=== PATIENT | female | born 1975 | race African-American/Black ===

== ENCOUNTER 2020-08-23 09:51 | Emergency (ER) | payer SELFPAY ==
[~2020-08-23] VITALS: Ht 162.6 cm; Wt 52.4 kg
--- NOTE | 2020-08-23 10:14 | PHYS DOC ---
Past History Past Medical History: Anemia, Hypothyroid, Other Additional Past Medical Histor: FAST HEART RATE Past Surgical History: Other Additional Past Surgical Histo: LEFT OVARY REMOVAL WITH ECTOPIC, HERNIA Alcohol Use: None General Adult EDM: Chief Complaint: ABDOMINAL PAIN HPI: HPI: 44 yo F PMH ectopic , anemia and hyperthyroidism with ablation on levothyroxine (x2yrs) presents to the ed with c/o abnormal menses with lower abdominal cramping and a sensation of "vaginal movement." Patient states she has had irregular menses ever since starting her levothyroxine 2 yrs ago, normal is VB x 2 days, [id number]. States she passed vaginal blood clots on Wednesday. Last menses lasted x2 days in April. Does report unprotected vaginal intercourse with a new male partner. Is oncerned for STIs due to increased vaginal discharge/odor. Has no primary care physician after moving here from [place] a year ago. P[employer] SPECIALIST in [place], Isaias Burns, has been refilling her levothyroxine (is not out of this medication). Is requesting family medicine, endocrine and PREFITTER referrals. Reports history 2 SAB, 1 EAB (s/p D&S) and 1 ectopic with failed methotrexate and L USO (complicated with small bowel perforation that required additional surgery). No h/o blood transfusions or fibroids. Reports no exertional dyspnea, syncope, dysuria, hematuria, flank pain, flulike symptoms, weight loss or night sweats. Review of Systems: Review of Systems: Constitutional: Denies fever or chills Eyes: Denies change in visual acuity HENT: Denies nasal congestion or sore throat Respiratory: Denies cough or shortness of breath Cardiovascular: Denies chest pain or edema GI: Denies nausea, vomiting, bloody stools or diarrhea : Denies dysuria or hematuria Musculoskeletal: Denies back pain or joint pain Integument: Denies rash or diaphoresis Neurologic: Denies headache, focal weakness or sensory changes Endocrine: Denies polyuria or polydipsia Lymphatic: Denies swollen glands Psychiatric: Denies depression or anxiety Allergies: Allergies: Allergies Coded Allergies Type Severity Reaction Last Updated Verified No Known Drug Allergies 08/23/20 No Physical Exam: PE: Constitutional: Well developed, well nourished, no acute distress, non-toxic appearance, small/petite HENT: Normocephalic, atraumatic, Eyes: EOMI, conjunctiva normal, no discharge. Neck: Normal range of motion, supple, Cardiovascular: S1/2 present, regular rhythm Lungs & Thorax: Speaking in full sentences, bilateral equal chest rise, no tachypnea or increased work of breathing Abdomen: soft, no tenderness, no guarding/rigidity/peritonitis Skin: Warm, dry, no erythema, no rash. [] Extremities: No tenderness, no cyanosis, no lower extremity edema Neurologic: Alert and oriented X 3, normal motor function, normal sensory function, no focal deficits noted. [] Psychologic: Affect normal, judgement normal, mood normal. [] Pelvic: Chaperoned by RN, external genitalia normal, no vaginal bleeding, normal nonmalodorous yellow/green elizabeth discharge, cervical os closed, no cervical er ythema, no CMT or adnexal tenderness, tolerated exam well Current Patient Data: Vital Signs: Vital Signs Date Time Temp Pulse Resp B/P (MAP) Pulse Ox O2 Delivery O2 Flow Rate FiO2 08/23/20 10:03 97.1 98 18 124/66 (85) 100 Room Air EKG: EKG: [] Radiology/Procedures: Radiology/Procedures: [] Heart Score: C/O Chest Pain: No Risk Factors: Risk Factors: DM, Current or recent (<one month) smoker, HTN, HLP, family history of CAD, obesity. Risk Scores: Score 0 - 3: 2.5% MACE over next 6 weeks - Discharge Home Score 4 - 6: 20.3% MACE over next 6 weeks - Admit for Clinical Observation Score 7 - 10: 72.7% MACE over next 6 weeks - Early Invasive Strategies Course & Med Decision Making: Course & Med Decision Making Pertinent Labs and Imaging studies reviewed. (See chart for details) Concern for bacterial vaginosis in the setting of urinary tract infection and unprotected intercourse, no PID on physical exam. Patient afebrile, well- appearing. Is treated empirically for chlamydia and gonorrhea. Will prescribe Macrobid and Flagyl for UTI bacterial vaginosis. I encouraged primary care or health department for blood-borne STI testing and treatment. Encouraged to abstain from sexual intercourse for 10 days after her and all sexual partners are treated for STIs. Will discharge home with strict ED return precautions were given for fever, flulike symptoms, dehydration, heavy vaginal bleeding or severe abdominal pelvic pain. Encouraged urgent outpatient follow-up with PMD and PREFITTER and endocrine. Life-threatening processes were considered but are low suspicion at this time, given history, physical exam and ED workup. Pt was educated on all prescription medications and adverse effects. All patient's questions were answered and pt was stable at time of discharge. Life/limb-threatening differential includes but is not limited to, ectopic , septic , sepsis/infection (endometritis, sti/pid, cystitis, pyelonephritis, Roger's gangrene or necrotizing fasciitis, abscess), ovarian torsion, ruptured hemorrhagic ovarian cyst, endometriosis, ureterolithiasis, thrombophlebitis, hemorrhage/DIC, organ prolapse, abdominal aortic aneurysm, mesenteric ischemia, neoplasm, bowel obstruction or surgical abdomen. I spoken with the patient and her caregivers. I explained the patient's condition, diagnoses and treatment plan based on the information available to me at this time. I have answered the patient and her caregiver's questions and addressed any concerns. The patient and her caregivers have a good understanding of patient's diagnosis, condition and treatment plan as can be expected at this point. Vital signs have been stable. Patient's condition is stable and appropriate for discharge from the emergency department. Patient will pursue further outpatient evaluation with primary care physician or other designated or consulting physician as outlined in the discharge instructions. The patient and/or caregivers are agreeable to this plan of care and follow-up instructions have been explained in detail. The patient and/or caregivers have received these instructions in written form and have expressed an understanding of the discharge instructions. The patient and/or caregivers are aware that any significant change of condition or worsening of symptoms should prompt immediate return to this or the closest emergency department or call to 1. Demetri Disclaimer: Demetri Disclaimer: This electronic medical record was generated, in whole or in part, using a voice recognition dictation system. Departure Departure: Impression: Primary Impression: UTI (urinary tract infection) Additional Impressions: Metrorrhagia Bacterial vaginosis Disposition: 01 DC HOME SELF CARE/HOMELESS Condition: STABLE Referrals: PCP,NO (PCP) Repat U/A in 10 days FOLLOW UP WITH FAMILY MEDICINE: Complete [facility], [facility] [address] [id number] [place] [address] Patient Instructions: Bacterial Vaginosis, Metrorrhagia, Urinary Tract Infection Additional Instructions: FOLLOW UP WITH OBGYN: [facility] PREFITTER [address] [place] [address] [facility] Endocrinology Appointments: Referrals are accepted through the Endocrine office. FAX: [phone] Office: [phone] Appointments: [phone] Option 1 [facility] Specialists - [place] [address] [facility] [address] [place] [address] EMERGENCY DEPARTMENT GENERAL DISCHARGE INSTRUCTIONS Thank you for coming to [facility] (ED) today and trusting us with you care. We trust that you had a positivie experience in our Emergency Department. If you wish to speak to the department management, you may call the director at [phone]. YOUR FOLLOW UP INSTRUCTIONS ARE FOLLOWS: 1. Do you have a private Doctor? If you do not have a private doctor, please ask for a resource list of physicians or clinics that may be able to assist you with follow up care. 2. The Emergency Physician has interpreted your x-rays. The X-Ray specialist will also review them. If there is a change in the findings, you will be notified in 48 hours when at all possible. 3. A lab test or culture has been done, your results will be reviewed and you will be notified if you need a change in treatment. ADDITIONAL INSTRUCTIONS AND INFORMATION: 1. Your care today has been supervised by a physician who is specially trained in emergency care. Many problems require more than one evaluation for a complete diagnosis and treatment. We recommend that you schedule your follow up appointment as recommended to ensure complete treatment of you illness or injury. If you are unable to obtain follow up care and continue to have a problem, or if your condition worsens, we recommend that you return to the ED. 2. We are not able to safely determine your condition over the phone nor are we able to give sound medical advice over the phone. For these safety reasons, if you call for medical advice we will ask you to come to the ED for further evaluation. 3. If you have any questions regarding these discharge instructions please call the ED at [phone]. SAFETY INFORMATION: In the interest of safety, wellness, and injury prevention; we encourage you to wear your sealbelt, if you smoke; quite smoking, and we encourage family to use a pr otective helmet for bicycling and other sporting events that present an increased risk for head injury. IF YOUR SYMPTOMS WORSEN OR NEW SYMPTOMS DEVELOP, OR YOU HAVE CONCERNS ABOUT YOUR CONDITION; OR IF YOUR CONDITION WORSENS WHILE YOU ARE WAITING FOR YOUR FOLLOW UP APPOINTMENT; EITHER CONTACT YOUR PRIMARY CARE DOCTOR, THE PHYSICIAN WHOSE NAME AND NUMBER YOU WERE GIVEN, OR RETURN TO THE ED IMMEDIATELY. Scripts Metronidazole (FLAGYL) 500 Mg Tablet 1 TAB PO BID for BV for 7 Days, #14 TAB Avoid alcohol with this medication, will cause nausea and vomiting Prov: JULIANA SPIVEY DO 08/23/20 Nitrofurantoin Monohyd/M-Cryst (MACROBID 100 MG CAPSULE) 100 Mg Capsule 1 CAP PO BID for uti for 7 Days, #14 CAP 0 Refills Prov: JULIANA SPIVEY DO 08/23/20 JULIANA SPIVEY DO Aug 23, 2020 10:14
[2020-08-23] MEDS ORDERED: cefTRIAXone IM 500 MG VIAL. IM ONE (10:30)
[2020-08-23 10:45] LABS: BACTERIA,URINE MANY /HPF (0-FEW); BILIRUBIN,URINE NEG (NEG); CLARITY,URINE CLOUDY; COLOR,URINE YELLOW; GLUCOSE,URINE NEG (NEG); NITRITE,URINE POS (NEG); SQUAMOUS EPITHELIAL CELL,UR FEW /LPF
[2020-08-23] MEDS ORDERED: METR500T PO (11:35)
[2020-08-23] MEDS ORDERED: NITR100C62 PO (11:35)
[2020-08-23 11:43] VITALS: BP 122/61
[2020-08-23] MEDS ORDERED: AZITHROMYCIN 250 MG TABLET. PO ONE (11:45)
[2020-08-26 16:21] LABS: CHLAMYDIA PROBE Positive (Negative)
== END 2020-08-23 11:45 | disposition home or self-care (01) ==
LOC: ER 09:51
DX: N39.0 Urinary tract infection, site not specified (principal); N76.0 Acute vaginitis; B96.89 Other specified bacterial agents as the cause of diseases classified elsewhere; N92.1 Excessive and frequent menstruation with irregular cycle; D64.9 Anemia, unspecified; E03.9 Hypothyroidism, unspecified; Z98.890 Other specified postprocedural states
CPT/HCPCS: 81001; 81025; 87086; 87491; 87591; 96372; 99284; J0696; Q0111; 87077; 87186

== ENCOUNTER 2020-08-26 20:28 | Emergency (ER) | payer SELFPAY ==
[~2020-08-26] VITALS: Ht 162.6 cm; Wt 51.4 kg
[~2020-08-26 20:28] MED LIST: METR500T PO; NITR100C62 PO
[2020-08-26 20:38] VITALS: BP 108/91
--- NOTE | 2020-08-26 20:50 | PHYS DOC ---
Past History Past Medical History: Anemia, Anxiety Additional Past Medical Histor: FAST HEART RATE Past Surgical History: Hysterectomy, Other Additional Past Surgical Histo: GI Alcohol Use: None General Adult EDM: Chief Complaint: HEAD INJURY/TRAUMA HPI: HPI: Patient is a 44-year-old female coming in via EMS for a head injury. Patient was walking in a store and hit her right forehead against a metal shelf. Says she stumbled backward but did not fall the ground. Patient states she feels a little bit dizzy and sleepy here. Vaccinations are up-to-date. States she otherwise been well. Denies any nausea, vomiting, vision changes. Review of Systems: Review of Systems: All other systems within normal limits except for as noted in the HPI Allergies: Allergies: Allergies Coded Allergies Type Severity Reaction Last Updated Verified No Known Drug Allergies 08/23/20 No Physical Exam: PE: Constitutional: Well developed, well nourished, no acute distress, non-toxic appearance. [] HENT: Normocephalic, right forehead hematoma, tenderness over right methodist, no orbital tenderness or deformity., bilateral external ears normal, nose normal. [] Eyes: PERRLA, conjunctiva normal, no discharge. [] Neck: No rigidity, supple, no stridor. [] Cardiovascular: Regular rate and rhythm, brisk cap refill [] Lungs & Thorax: Non labored symmetric respirations, no tachypnea or respiratory distress [] Abdomen: Soft, nondistended. Skin: Warm, dry, no erythema, no rash. Superficial less than 1 cm cut to right forehead overlying hematoma. [] Back: Unremarkable Extremities: No deformities, range of motion grossly intact, no lower extremity edema [] Neurologic: Alert and oriented X 3, no focal deficits noted. [] Psychologic: Affect normal, judgement normal, mood normal. [] Current Patient Data: Vital Signs: Vital Signs Date Time Temp Pulse Resp B/P (MAP) Pulse Ox O2 Delivery O2 Flow Rate FiO2 08/26/20 20:38 98.1 76 16 108/91 (97) 100 Room Air EKG: EKG: [] Radiology/Procedures: Radiology/Procedures: EXAM: CT HEAD WITHOUT CONTRAST. HISTORY: Head injury. TECHNIQUE: Computed tomography of the head was performed without intravenous contrast. One or more of the following individualized dose reduction techniques were utilized for this examination: 1. Automated exposure control. 2. Adjustment of the mA and/or kV according to patient size. 3. Use of iterative reconstruction technique. COMPARISON: None. FINDINGS: There is no intracranial hemorrhage. Bergeron-white differentiation is preserved. The ventricles are normal in size and position. The visualized paranasal sinuses appear clear. The orbits are unremarkable. The temporal bones are unremarkable. The calvarium reveals no suspicious lesions. IMPRESSION: 1. No acute intracranial findings.[] Heart Score: C/O Chest Pain: N/A Risk Factors: Risk Factors: DM, Current or recent (<one month) smoker, HTN, HLP, family history of CAD, obesity. Risk Scores: Score 0 - 3: 2.5% MACE over next 6 weeks - Discharge Home Score 4 - 6: 20.3% MACE over next 6 weeks - Admit for Clinical Observation Score 7 - 10: 72.7% MACE over next 6 weeks - Early Invasive Strategies Course & Med Decision Making: Course & Med Decision Making Pertinent Labs and Imaging studies reviewed. (See chart for details) [] Demetri Disclaimer: Demetri Disclaimer: This electronic medical record was generated, in whole or in part, using a voice recognition dictation system. Departure Departure: Impression: Primary Impression: Head injury Additional Impression: Traumatic hematoma of forehead Disposition: 01 DC HOME SELF CARE/HOMELESS Condition: STABLE Referrals: PCP,NO (PCP) Patient Instructions: Concussion and Brain Injury MARY ANN TORRES MD Aug 26, 2020 20:50
--- NOTE | 2020-08-26 21:13 | RAD ---
EXAM: CT HEAD WITHOUT CONTRAST. HISTORY: Head injury. TECHNIQUE: Computed tomography of the head was performed without intravenous contrast. One or more of the following individualized dose reduction techniques were utilized for this examination: 1. Automated exposure control. 2. Adjustment of the mA and/or kV according to patient size. 3. Use of iterative reconstruction technique. COMPARISON: None. FINDINGS: There is no intracranial hemorrhage. Bergeron-white differentiation is preserved. The ventricle s are normal in size and position. The visualized paranasal sinuses appear clear. The orbits are unremarkable. The temporal bones are un remarkable. The calvarium reveals no suspicious lesions. IMPRESSION: 1. No acute intracranial findings. Electronically signed by: Sumit Harding MD (08/26/2020 9:11 PM) [facility]
== END 2020-08-26 21:29 | disposition home or self-care (01) ==
LOC: ER 20:28
DX: S00.83XA Contusion of other part of head, initial encounter (principal); W22.8XXA Striking against or struck by other objects, initial encounter; Y93.01 Activity, walking, marching and hiking; Y92.89 Other specified places as the place of occurrence of the external cause; Y99.8 Other external cause status
CPT/HCPCS: 70450; 99284-25

== ENCOUNTER → 2020-12-20 | Day surgery (SDC) | payer BC ==
[~2020-12-20] MED LIST changes: +IPRATRPIUM/ALBUTEROL 0.5/2.5MG 3 ML NEBU. NEB PRN; +IV RINGERS SOLUTION,LACTATED 1,000 ML IV SCH; +LEVO75TA5 PO; +LIDOCAINE 2% PF 5 ML VIAL. ONE; +MIDAZOLAM HCL PF 2 MG/2 ML VIAL. IV ONE; +ONDANSETRON PF 4 MG/2 ML VIAL. IV PRN; +PANT40TA6 PO; +PROPOFOL 10,000 MCG/ML (20ML) VIAL IV ONE; +ZOLP10TA PO
[2020-12-20 11:06] LABS: BARBITURATES NEG (NEG); BENZODIAZEPINES NEG (NEG); CANNABINOIDS POS (NEG); COCAINE NEG (NEG); METHADONE NEG (NEG); OPIATES NEG (NEG); PHENCYCLIDINE NEG (NEG)
[2020-12-20 11:09] LABS: AMPHETAMINE/METHAMPHETAMINE NEG (NEG)
[2020-12-20 13:46] VITALS: BP 91/61
--- NOTE | 2020-12-24 14:32 | PATHOLOGY ---
[facility] Accession Number: [id number] . 01 Material submitted: . PART A: stomach - ANTRUM BIOPSY PART B: sigmoid colon - SIGMOID COLON HOT SNARE POLYPECTOMY PART C: sigmoid colon - COLITIS BIOPSY SIGMOID COLON . 01 Clinical history: . N/V ; ANEMIA ; EPIGASTRIC ; WEIGHT LOSS EGD/COLONOSCOPY . 02 Diagnosis: A. Gastric biopsies, antrum: - Chronic gastritis, mild. . B. Colonic mucosa, sigmoid colon polypectomy: - Tubular adenoma. . C. Colonic mucosa, sigmoid colon biopsies: - Focal recent hemorrhage within lamina propria. (JPM:fernando; 12/24/2020) [facility] 12/24/2020 0927 Local . 02 Comment: Sections of the gastric antral biopsy show congestion and mild chronic inflammation. A properly controlled immunoperoxidase stain for Helicobacter is negative for Helicobacter organisms. . Sections of the sigmoid colon polypectomy reveal a tubular adenoma showing no high grade dysplasia or evidence of malignancy. . Sections of the sigmoid colon biopsy reveal segments of colonic mucosa showing focal recent hemorrhage within the lamina propria. There is no evidence of an acute colitis or ischemic colitis. There is no evidence of a chronic destructive colitis, lymphocytic colitis, or collagenous colitis. (JPM:fernando; 12/24/2020) . Special stain performed: Immunoperoxidase stain for Helicobacter on A1 . 02 Electronically signed: . Nito Cook MD, Pathologist NPI- [id number] . 01 Gross description: . A. The specimen is submitted in formalin, labeled "Casi Mcmullen, antrum biopsy". Received are 3 segments of pale mortensen tissue ranging in size from 0.1 to 0.4 cm in maximum dimensions. The specimen is submitted in cassette A1. . B. The specimen is received in formalin, labeled "Casi Mcmullen, sigmoid colon polyp hot snare". Received is a single segment of dark mortensen tissue measuring 1.0 x 0.9 x 0.7 cm in maximum dimensions. The surgical margin is inked. The specimen is trisected and submitted entirely in cassette B1. . C. The specimen is submitted in formalin, labeled "Casi Mcmullen, colitis biopsy sigmoid colon". Received are 2 segments of pale mortensen tissue ranging in size from 0.4 to 0.5 cm in maximum dimensions. The specimen is submitted in cassette C1. ([facility]; 12/23/2020) NRI/NRI 12/23/2020 1736 Local . 02 Pathologist provided ICD-10: K29.50, D12.5 . 02 CPT . 745090, 220503, 748025, F90808 Specimen Comment: A courtesy copy of this report has been sent to [phone], [phone] Specimen Comment: [id number] Specimen Comment: Report sent to / DR SHARMA Performed at: 01 [facility] [address] [facility] [address], [place] [id number] MD Cornelio Tobar MD Phone: [phone] Performed at: 02 [facility] [address] [place], [place] [id number] MD Nito Cook MD Phone: [phone]
== END | disposition home or self-care (01) ==
LOC: SURG 10:25
PROVIDERS: ATTEND Internal Medicine Gastroenterology
DX: K62.5 Hemorrhage of anus and rectum (principal); D64.9 Anemia, unspecified; R63.4 Abnormal weight loss; R10.13 Epigastric pain; K44.9 Diaphragmatic hernia without obstruction or gangrene; K21.00 Gastro-esophageal reflux disease with esophagitis, without bleeding; D12.5 Benign neoplasm of sigmoid colon; K29.50 Unspecified chronic gastritis without bleeding; K63.89 Other specified diseases of intestine; K31.89 Other diseases of stomach and duodenum; F17.210 Nicotine dependence, cigarettes, uncomplicated; Z79.899 Other long term (current) drug therapy; Z98.890 Other specified postprocedural states; Z20.822 Contact with and (suspected) exposure to COVID-19
CPT/HCPCS: 36415; 43239; 45380; 45381; 45385; 80307; 87426; 88305; 88342; C9803; J2001; J2704; J7120; U0003

== ENCOUNTER 2021-02-06 21:10 | Emergency (ER) | payer BC ==
[~2021-02-06] VITALS: Ht 162.6 cm; Wt 49.0 kg
[2021-02-06 21:10] VITALS: BP 97/60
[~2021-02-06 21:10] MED LIST changes: -IPRATRPIUM/ALBUTEROL 0.5/2.5MG 3 ML NEBU. NEB PRN; -IV RINGERS SOLUTION,LACTATED 1,000 ML IV SCH; -LIDOCAINE 2% PF 5 ML VIAL. ONE; -MIDAZOLAM HCL PF 2 MG/2 ML VIAL. IV ONE; -ONDANSETRON PF 4 MG/2 ML VIAL. IV PRN; -PROPOFOL 10,000 MCG/ML (20ML) VIAL IV ONE
--- NOTE | 2021-02-06 21:41 | PHYS DOC ---
Past History Past Medical History: Anemia, Anxiety Additional Past Medical Histor: FAST HEART RATE (GUNNAR BRADY APRN) Past Surgical History: Hysterectomy, Other Additional Past Surgical Histo: GI (GUNNAR BRADY APRN) Alcohol Use: None (GUNNAR BRADY APRN) General Adult EDM: Chief Complaint: MULTIPLE COMPLAINTS HPI: HPI: Patient is a 45-year-old female who presents to the ER for multiple complaints. She states she she has a parasite because she will have "backing up of saliva into throat" with fluids but is able to tolerate food, GERD symptoms for several months, and she believes that she sees a parasite exam out of her left buttocks and then goes back in. She is also concerned because she has bladder pressure pain and thinks the parasite may be coming through her bladder. Patient reports that her symptoms started 3 months ago. Patient has been seen by Selvin Meza and Lucio for the symptoms. She has had EGD and colonoscopy. Patient is also concerned because she has scattered areas of bruising to her right thigh which she states becomes "activated" and will turn red and then go back to a bruise. (GUNNAR BRADY APRN) Review of Systems: Review of Systems: 14 body systems of the review of systems have been reviewed. See HPI for pertinent positive and negative responses, otherwise all other systems are negative, nonpertinent or noncontributory (GUNNAR BRADY APRN) Allergies: Allergies: Allergies Coded Allergies Type Severity Reaction Last Updated Verified No Known Drug Allergies 08/23/20 No (GUNNAR BRADY APRN) Physical Exam: PE: Constitutional: Well developed, well nourished, no acute distress, non-toxic appearance. [] HENT: Normocephalic, atraumatic, bilateral external ears normal, oropharynx moist, no oral exudates, nose normal. [] Eyes: PERRL, EOMI, conjunctiva normal, no discharge. [] Neck: Normal range of motion, no stridor Cardiovascular: Normal peripheral perfusion Lungs & Thorax: Normal work of breathing Abdomen: Soft, nondistended, no pulsatile masses Skin: Warm, dry, no erythema, no rash, no lesions noted to patient's buttocks, patient is noted to have a few small bruises to her lower extremities there is no surrounding redness and they appear to be healing well. [] Back: Normal range of motion Extremities: No tenderness, no cyanosis, no clubbing, ROM intact, no edema. [] Neurologic: Alert and oriented X 3, normal motor function, normal sensory funct ion, no focal deficits noted. [] Psychologic: Affect normal, judgement normal, mood normal. [] (GUNNAR BRADY APRN) EKG: EKG: [] (GUNNAR BRADY APRN) Radiology/Procedures: Radiology/Procedures: [] (GUNNAR BRADY APRN) Heart Score: C/O Chest Pain: No Risk Factors: Risk Factors: DM, Current or recent (<one month) smoker, HTN, HLP, family history of CAD, obesity. Risk Scores: Score 0 - 3: 2.5% MACE over next 6 weeks - Discharge Home Score 4 - 6: 20.3% MACE over next 6 weeks - Admit for Clinical Observation Score 7 - 10: 72.7% MACE over next 6 weeks - Early Invasive Strategies (GUNNAR BRADY APRN) Course & Med Decision Making: Course & Med Decision Making Pertinent Labs and Imaging studies reviewed. (See chart for details) [] Patient is a 45-year-old female being seen regarding ER for possible parasite she believes keeps entering and exiting through her left buttocks. There was no lesions to her buttocks. There are a few bruises noted to her lower extremities but they had no redness around them and appeared to be healing well. Patient reports that she has had some "saliva backing up into throat" with fluids but has been able to eat solids. Her vital signs are stable. Patient has been worked up for these symptoms by 3 different doctors. She has had an upper and lower GI scope performed. Work-up in the ER consisted of a urinalysis and test. Negative test and urinalysis was unremarkable. She was also asked to provide a stool sample for ova and parasite testing. Patient states that she cannot provide a stool sample at this time. Patient was treated for nausea with Zofran. Patient advised to follow-up with her primary care provider. I discussed with patient all findings and diagnostic testing as well as the need to follow-up with PCP for further evaluation and treatment or return to the ER if any new or worsening symptoms. Strict return precautions were also discussed at length. Patient voiced understanding and agreement with the plan. Patient is hemodynamically stable at the time of disposition. (GUNNAR BRADY APRN) Course & Med Decision Making Did not see or evaluate patient. Did not discuss patient with BURRER MACHINE. Agree with BURRER MACHINE's work-up and disposition per note. (YOLANDA QUEZADA MD) Dragon Disclaimer: Dragon Disclaimer: This electronic medical record was generated, in whole or in part, using a voice recognition dictation system. (GUNNAR BRADY APRN) Departure Departure: Impression: Primary Impression: Nausea Disposition: HOME / SELF CARE / HOMELESS Condition: GOOD Referrals: SANJUANA SHARMA MD (PCP) Patient Instructions: Nausea, Adult Additional Instructions: You were seen in the ER today for multiple complaints including thinking there was a parasite in your body. You were unable to provide a stool sample to test for parasite. If you are able to provide a stool sample your primary care provider can run the same testing. We tested your urine for infection and . You are not and your urinalysis was unremarkable. You were given Zofran for nausea in the ER as he stated that you spit up fluids. Your vital signs are stable and your physical exam was reassuring. You are being discharged home with a prescription for Zofran that you can take as needed for nausea. Increase your fluids. Stick to clear liquid diet over the next 24 hours which consisted Gatorade, Jell-O's, soup. Following the first 24 hours you can eat a bland diet, we suggest the brat diet which consists of bananas, rice, applesauce and toast. Upon physical exam, you did not have any tick bites or visible parasites on your skin. Your test was negative. Your urinalysis was unremarkable. You should follow-up with your primary care provider tomorrow regarding your ER visit. Please return to the ER if you develop intractable nausea or vomiting, high fevers refractory to treatment, severe abdominal pain, blood in your stools or vomit, lightheadedness or any new or worsening concerns. EMERGENCY DEPARTMENT GENERAL DISCHARGE INSTRUCTIONS Thank you for coming to [facility] (ED) today and trusting us with you care. We trust that you had a positivie experience in our Emergency Department. If you wish to speak to the department management, you may call the director at [phone]. YOUR FOLLOW UP INSTRUCTIONS ARE FOLLOWS: 1. Do you have a private Doctor? If you do not have a private doctor, please ask for a resource list of physicians or clinics that may be able to assist you with follow up care. 2. The Emergency Physician has interpreted your x-rays. The X-Ray specialist will also review them. If there is a change in the findings, you will be notified in 48 hours when at all possible. 3. A lab test or culture has been done, your results will be reviewed and you will be notified if you need a change in treatment. ADDITIONAL INSTRUCTIONS AND INFORMATION: 1. Your care today has been supervised by a physician who is specially trained in emergency care. Many problems require more than one evaluation for a complete diagnosis and treatment. We recommend that you schedule your follow up appointment as recommended to ensure complete treatment of you illness or injury. If you are unable to obtain follow up care and continue to have a problem, or if your condition worsens, we recommend that you return to the ED. 2. We are not able to safely determine your condition over the phone nor are we able to give sound medical advice over the phone. For these safety reasons, if you call for medical advice we will ask you to come to the ED for further evaluation. 3. If you have any questions regarding these discharge instructions please call the ED at [phone]. SAFETY INFORMATION: In the interest of safety, wellness, and injury prevention; we encourage you to wear your sealbelt, if you smoke; quite smoking, and we encourage family to use a protective helmet for bicycling and other sporting events that present an increased risk for head injury. IF YOUR SYMPTOMS WORSEN OR NEW SYMPTOMS DEVELOP, OR YOU HAVE CONCERNS ABOUT YOUR CONDITION; OR IF YOUR CONDITION WORSENS WHILE YOU ARE WAITING FOR YOUR FOLLOW UP APPOINTMENT; EITHER CONTACT YOUR PRIMARY CARE DOCTOR, THE PHYSICIAN WHOSE NAME AND NUMBER YOU WERE GIVEN, OR RETURN TO THE ED IMMEDIATELY. Scripts Ondansetron (ONDANSETRON ODT) 4 Mg Tab.rapdis 1 TAB PO PRN Q6-8HRS for nausea for 3 Days, #12 TAB 0 Refills Prov: GUNNAR BRADY APRN 02/06/21 GUNNAR BRADY APRN Feb 06, 2021 21:41 YOLANDA QUEZADA MD Feb 06, 2021 23:53
[2021-02-06] MEDS ORDERED: ONDANSETRON ODT 4 MG TAB.RAPDIS PO ONE (22:00)
[2021-02-06] MEDS ORDERED: ONDA-84 PO (22:07)
[2021-02-06] MEDS ORDERED: ONDA4TAB12 PO (22:08)
[2021-02-06 22:16] LABS: BILIRUBIN,URINE NEG (NEG); CLARITY,URINE CLEAR; COLOR,URINE YELLOW; GLUCOSE,URINE NEG (NEG); NITRITE,URINE NEG (NEG); UROBILINOGEN,URINE 0.2 mg/dL (0.2 mg/dL)
[2021-02-06 22:17] LABS: BACTERIA,URINE FEW /HPF (0-FEW); SQUAMOUS EPITHELIAL CELL,UR OCC /LPF
== END 2021-02-06 22:24 | disposition home or self-care (01) ==
LOC: ER 21:10
DX: S80.12XA Contusion of left lower leg, initial encounter (principal); S80.11XA Contusion of right lower leg, initial encounter; R11.0 Nausea; N32.89 Other specified disorders of bladder; F41.9 Anxiety disorder, unspecified; Z86.2 Personal history of diseases of the blood and blood-forming organs and certain disorders involving the immune mechanism; X58.XXXA Exposure to other specified factors, initial encounter; Y93.89 Activity, other specified; Y92.89 Other specified places as the place of occurrence of the external cause; Y99.8 Other external cause status
CPT/HCPCS: 81001; 81025; 99283; Q0162